=== PATIENT | female | born 1990 | race African-American/Black ===

== ENCOUNTER 2022-08-22 21:01 | Emergency (ER) | payer OTHER ==
[~2022-08-22] VITALS: Ht 170.2 cm; Wt 130.6 kg
[2022-08-22] MEDS ORDERED: ACETAMINOPHEN500 MG PO (22:26)
[2022-08-22] MEDS ORDERED: BACLOFEN20 MG PO (22:26)
[2022-08-22 22:34] VITALS: BP 125/75
== END 2022-08-22 22:34 | disposition home or self-care (01) ==
LOC: FSED 21:10
DX: M54.50 Low back pain, unspecified (principal); G89.29 Other chronic pain; E11.9 Type 2 diabetes mellitus without complications; Z98.84 Bariatric surgery status
CPT/HCPCS: 74176; 81003; 99283